=== PATIENT | female | born 1930 | race Caucasian/White ===

== ENCOUNTER 2017-01-10 14:29 | Emergency (ER) | payer MEDICARE, OTHER ==
--- NOTE | 2017-01-10 14:57 | EDM.PDOC ---
ED HPI GI/ABDOMINAL - General Chief Complaint: Gastrointestinal Problem Stated Complaint: BOWL ISSUES Time Seen by Provider: 01/10/17 14:41 Source of Information: Reports: Patient, RN notes reviewed - History of Present Illness INITIAL COMMENTS - FREE TEXT/NARRATIVE: 86-year-old female comes in with constipation. States she is normally quite regular going every day or every other day. Now it has been 3 days since her last decent BM. She feels a lot of pressure in the rectum but unable to push anything out today. Her appetite has been okay. She's been eating and drinking as usual. No nausea vomiting fever chills chest pain or other unusual symptomatology - Related Data Allergies/ADRs: Allergies Allergy/AdvReac Type Severity Reaction Status Date / Time tetanus toxoid, adsorbed Allergy Unknown Cannot Verified 01/10/17 14:39 Remember Home Meds: Home Meds Allopurinol [Zyloprim] 100 mg PO DAILY 01/10/17 [History] Ascorbic Acid [Vitamin C] 500 mg PO DAILY 01/10/17 [History] Calcium Carbonate/Vitamin D3 [Os-Jai 500+D] 1 tab PO DAILY 01/10/17 [History] Enalapril [Vasotec] 5 mg PO DAILY 01/10/17 [History] Hydrochlorothiazide [Microzide] 12.5 mg PO DAILY 01/10/17 [History] Meclizine [Antivert] 12.5 mg PO TID PRN 01/10/17 [History] [place]-3/DHA/Epa/Fish Oil [[place]-3 Fish Oil 1,000 MG Sfgl] 1,000 mg PO DAILY 12/28 [History] Vitamin E 400 unit PO DAILY 01/10/17 [History] Past Medical History Cardiovascular History: Reports: Hypertension Gastrointestinal History: Reports: Diverticulosis Musculoskeletal History: Reports: Gout Neurological History: Reports: Vertigo - Past Surgical History GI Surgical History: Reports: Appendectomy Social & Family History - Tobacco Use Smoking Status *Q: Never Smoker - Caffeine Use Caffeine Use: Reports: Coffee - Recreational Drug Use Recreational Drug Use: No ED ROS GENERAL - Review of Systems Review Of Systems: See Below Constitutional: Denies: fever, chills HEENT: Denies: Throat pain Respiratory: Denies: shortness of breath Cardiovascular: Denies: Chest pain GI/Abdominal: Reports: Constipation, Other (feels a lot of pressure in her rectum). Denies: Abdominal pain, Nausea, Vomiting Musculoskeletal: Denies: back pain Skin: Reports: no symptoms Neurological: Reports: no symptoms ED EXAM, GI/ABD - Physical Exam Exam: See Below General Appearance: alert, anxious (mild) Throat/Mouth: Normal inspection, Normal oropharynx Head: atraumatic Respiratory/Chest: no respiratory distress, lungs clear, normal breath sounds Cardiovascular: regular rate, rhythm GI/Abdominal: soft, non tender. No: guarding Rectal (Female) Exam: Other (large amount of firm stool present in the rectum, no blood, no unusual mass or tenderness palpable) Extremities: normal inspection, normal range of motion Skin Exam: Warm, Dry, Normal color Course - Vital Signs Last Recorded V/S: Last Vital Signs Temp 97.6 F 01/10/17 14:37 Pulse 101 H 01/10/17 14:37 Resp 16 01/10/17 14:37 BP 174/109 H 01/10/17 14:37 Pulse Ox 97 01/10/17 14:37 - Re-Assessments/Exams Free Text/Narrative Re-Assessment/Exam: 01/10/17 15:38one of our nurses did do some manual extraction. She then was allowed to sit on the commode and had some good results. Discharge instructions as documented Departure - Departure Time of Disposition: 15:17 Disposition: Home, Self-Care 01 Condition: fair Clinical Impression: Constipation Instructions: Constipation, Adult, [id number] Referrals: Gerardo Otero MD [Primary Care Provider] - Forms: ED Department Discharge Additional Instructions: I recommend he start a stool softener once or twice daily such as Colace, available OTC. high fiber diet, try avoid non-fiber foods as best you can, drink plenty water, MiraLax also available OTC once or twice daily if needed for any further constipation difficulties, followup with your regular medical provider as needed, return to ED as needed
== END 2017-01-10 15:30 | disposition home or self-care (01) ==
LOC: JD.ED 14:29
CPT/HCPCS: 99282; 99283